=== PATIENT | female | born 1940 | race Caucasian/White ===

== ENCOUNTER → 2016-07-29 | Outpatient (CLI) | payer OTHER | LOC: MMPC 11:11 | DX: C50.311 Malignant neoplasm of lower-inner quadrant of right female breast (principal); G47.00 Insomnia, unspecified; F43.21 Adjustment disorder with depressed mood; F03.90 Unspecified dementia, unspecified severity, without behavioral disturbance, psychotic disturbance, mood disturbance, and anxiety; G25.0 Essential tremor; J45.909 Unspecified asthma, uncomplicated; E55.9 Vitamin D deficiency, unspecified; E53.8 Deficiency of other specified B group vitamins | CPT/HCPCS: 99213; G0463 ==

== ENCOUNTER → 2016-09-12 | Outpatient (CLI) | payer OTHER ==
--- NOTE | 2016-09-12 16:26 | DI ---
XR KNEE CMPT 4 OR MORE VWS,09/12/2016 10:49 AM: Clinical History: Right knee pain of unspecified chronicity. Previous Exam: None at this facility. Findings: 4 views of the right knee are obtained to include a weightbearing view of both knees in the AP projec tion. There is no fracture although there is an old left medial collateral ligament injury which was seen o n the prior comparison in 2014. There is mild loss of joint space within the anterior and medial comp artments with osteophyte formation. There is no knee joint effusion. Impression: Normal plain film of the right knee for age.
== END ==
LOC: ORTHO 12:08
PROVIDERS: ATTEND Orthopaedic Surgery
DX: M25.561 Pain in right knee (principal); M17.11 Unilateral primary osteoarthritis, right knee
CPT/HCPCS: 73564; 99214

== ENCOUNTER → 2016-10-02 | Outpatient (CLI) | payer OTHER | LOC: MMPC 09:00 | DX: C50.311 Malignant neoplasm of lower-inner quadrant of right female breast (principal); F03.90 Unspecified dementia, unspecified severity, without behavioral disturbance, psychotic disturbance, mood disturbance, and anxiety; G25.0 Essential tremor; K21.9 Gastro-esophageal reflux disease without esophagitis; G47.00 Insomnia, unspecified; E55.9 Vitamin D deficiency, unspecified; E53.8 Deficiency of other specified B group vitamins; J45.909 Unspecified asthma, uncomplicated | CPT/HCPCS: 99213; G0463 ==

== ENCOUNTER → 2016-12-05 | Outpatient (CLI) | payer OTHER | LOC: MMPC 11:11 | DX: C50.311 Malignant neoplasm of lower-inner quadrant of right female breast (principal); K21.9 Gastro-esophageal reflux disease without esophagitis; G47.00 Insomnia, unspecified; G25.0 Essential tremor; R41.81 Age-related cognitive decline; E53.8 Deficiency of other specified B group vitamins | CPT/HCPCS: 99213; G0463 ==

== ENCOUNTER → 2017-01-24 | Outpatient (CLI) | payer OTHER | LOC: MMPC 11:11 | DX: E53.8 Deficiency of other specified B group vitamins (principal) | CPT/HCPCS: G0463; J3420 ==

== ENCOUNTER → 2017-02-25 | Outpatient (CLI) | payer OTHER ==
[2017-02-25 13:01] LABS: BASOPHILS # (AUTO) 0.06 10*3/UL; BASOPHILS % (AUTO) 1.7 % (0-1); EOSINOPHILS % (AUTO) 2.9 % (0-8); MEAN CORPUSCULAR HEMOGLOBIN 31.7 PG (27-31); MEAN CORPUSCULAR HGB CONC 32.6 g/dL (33-37); MEAN CORPUSCULAR VOLUME 97.3 FL (81-99); MEAN PLATELET VOLUME 9.7 FL (7.4-12.2); MONOCYTES # (AUTO) 0.37 10*3/UL (0.3-0.8); MONOCYTES % (AUTO) 10.7 % (5-15); NEUTROPHILS # (AUTO) 2.03 10*3/UL; NEUTROPHILS % (AUTO) 58.5 % (50-80); RED BLOOD COUNT 4.42 10^6/uL (4.20-5.40)
[2017-02-25 13:02] LABS: PLATELET MORPHOLOGY COMMENT NORMAL MORPHOLOGY (NORM); RBC MORPHOLOGY COMMENT NORMAL MORPHOLOGY (NORM); WBC MORPHOLOGY COMMENT NORMAL MORPHOLOGY (NORM)
[2017-02-25 13:05] LABS: BILIRUBIN,URINE NEGATIVE (NEG); CLARITY,URINE CLEAR (CLEAR); COLOR,URINE YELLOW; GLUCOSE, URINE (UA) NEGATIVE (NEG); NITRATE,URINE NEGATIVE (NEG); OCCULT BLOOD,URINE Trace-lysed (NEG); PROTEIN,URINE NEGATIVE (NEG); UROBILINOGEN,URINE 0.2 mg/dL (0.2)
[2017-02-25 13:07] LABS: SQUAMOUS EPITHELIAL CELL,UR FEW; URINE SAMPLE TYPE VOIDED SPECIMEN
[2017-02-25 13:25] LABS: BUN/CREATININE RATIO 26.25 (6-20); CALCIUM 10.3 mg/dL (8.7-10.7); CHOL/HDL RATIO 2.19 RATIO (0-4.0); LDL CHOLESTEROL,CALCULATED 116.4 mg/dL; SERUM ALBUMIN 4.2 g/dL (3.5-4.8)
[2017-02-25 13:40] LABS: VITAMIN D 25-HYDROXY 24.4 NG/ML (30-100)
== END ==
LOC: MOB LAB 11:43
DX: G47.00 Insomnia, unspecified (principal); J45.909 Unspecified asthma, uncomplicated; K21.9 Gastro-esophageal reflux disease without esophagitis; C50.911 Malignant neoplasm of unspecified site of right female breast; M85.80 Other specified disorders of bone density and structure, unspecified site; E55.9 Vitamin D deficiency, unspecified; F41.9 Anxiety disorder, unspecified
CPT/HCPCS: 36415; 80053; 80061; 81001; 82306; 84443; 85025

== ENCOUNTER 2018-04-01 03:14 | Observation (INO) ==
[2018-04-01] MEDS ORDERED: Sodium Chloride 0.9% 1,000 ML PRIMARY IV ONE (03:35)
[2018-04-01 03:47] LABS: BASOPHILS # (AUTO) 0.03 10*3/UL; BASOPHILS % (AUTO) 0.4 % (0-1); EOSINOPHILS # (AUTO) 0.09 10*3/UL; EOSINOPHILS % (AUTO) 1.2 % (0-8); Hematocrit [HCT] 42.2 % (37.0-47.0); Hemoglobin [HGB] 14.4 g/dL (12.0-16.0); LYMPHOCYTES # (AUTO) 1.04 10*3/uL; MEAN CORPUSCULAR HEMOGLOBIN 32.8 PG (27-31); MEAN CORPUSCULAR HGB CONC 34.1 g/dL (33-37); MEAN CORPUSCULAR VOLUME 96.1 FL (81-99); MEAN PLATELET VOLUME 9.1 FL (7.4-12.2); MONOCYTES # (AUTO) 0.59 10*3/UL (0.3-0.8); MONOCYTES % (AUTO) 7.7 % (5-15); NEUTROPHILS # (AUTO) 5.94 10*3/UL; NEUTROPHILS % (AUTO) 76.9 % (50-80); PLATELET MORPHOLOGY COMMENT NORMAL MORPHOLOGY (NORM); RBC MORPHOLOGY COMMENT NORMAL MORPHOLOGY (NORM); RED BLOOD COUNT 4.39 10^6/uL (4.20-5.40); WBC MORPHOLOGY COMMENT NORMAL MORPHOLOGY (NORM)
[2018-04-01] MEDS ORDERED: Acetaminophen 1000mg Inj 1,000 MG/100 ML VIAL IV PRN (03:47)
[2018-04-01 03:55] LABS: BLOOD UREA NITROGEN 16 mg/dL (7-22); LIPASE 220 IU/L (23-300)
[2018-04-01 04:31] LABS: BILIRUBIN,URINE NEGATIVE (NEG); CLARITY,URINE CLEAR (CLEAR); COLOR,URINE YELLOW (Y); GLUCOSE, URINE (UA) NEGATIVE (NEG); OCCULT BLOOD,URINE NEGATIVE (NEG); PROTEIN,URINE NEGATIVE (NEG); URINE SAMPLE TYPE CATH SPECIMEN; UROBILINOGEN,URINE 0.2 EU/dL (0.2)
--- NOTE | 2018-04-01 04:48 | DI ---
INDICATION: Lower pelvic pain TECHNIQUE: Multiple, contiguous axial cuts of the abdomen and pelvis are obtained from the lung bases to the ischial tuberosities following the administration of 75 mL Isovue-300 IV contrast. Sagittal and coronal reformatted images are available. COMPARISON: None FINDINGS: There is subsegmental atelectasis at the right lung base. There is a small hiatal hernia. The liver, gallbladder, spleen, pancreas, and adrenal glands are unremarkable. The kidneys enhance symmetrically. There is no hydronephrosis or perinephric stranding. Aorta and IVC are normal. There is no adenopathy. The appendix is not visualized. There is no evidence of bowel obstruction. There is sigmoid diverticulosis with acute diverticulitis of the distal sigmoid colon (series 2, image 104), characterized by wall thickening and pericolic fat stranding and fluid. There is no evidence of free air or diverticular abscess. Urinary bladder is unremarkable. Uterus is surgically absent. There are no acute osseous findings. There is moderate degenerative disc disease in the lower lumbar spine. There are bilateral pars defects at L5 with grade 1 spondylolisthesis. IMPRESSION: 1. Acute sigmoid diverticulitis.
[2018-04-01] MEDS ORDERED: DOXEPIN HCL 3 MG PO PRN (05:51)
[2018-04-01] MEDS ORDERED: ACETAMINOPHEN 325 MG TABLET PO PRN (05:51)
[2018-04-01] MEDS ORDERED: CALCIUM CARBONATE 500 MG (TUMS) CHEWABLE TABLET PO PRN (05:51)
[2018-04-01] MEDS ORDERED: LIDOCAINE W/ SODIUM BICARB 0.5 ML SYR SUBD PRN (05:51)
[2018-04-01] MEDS ORDERED: DOCUSATE 100 MG CAPSULE PO PRN (05:51)
[2018-04-01] MEDS ORDERED: ONDANSETRON 4 MG/2 ML VIAL IVP PRN (05:51)
[2018-04-01] MEDS ORDERED: CHOLECALCIFEROL 4000 UNIT PO SCH (05:51)
[2018-04-01] MEDS ORDERED: IPRATROPIUM/ALBUTEROL SULFATE 3 ML NEB NEB PRN (05:51)
[2018-04-01] MEDS: D5-1/2NS + 20mEq KCL 1,000 ML PRIMARY IV SCH ×2 (06:38→16:08)
--- NOTE | 2018-04-01 08:08 | PDOC ---
Abdomen/Flank HPI - General Chief Complaint: Abdomen Pain Stated Complaint: abdominal pain Date Seen by Provider: 04/01/18 Time Seen by Provider: 03:25 Source: POSITIVE: Patient, Spouse Exam Limitations: POSITIVE: Clinical condition (Patient has Alzheimer's and is a somewhat poor historian. Lateral information collected from patient's ). NEGATIVE: No limitations, Intoxication, Language barrier, Physical impairment, Other Nurse's Notes Reviewed & Considered: Yes - History of Present Illness Initial Comments: The patient is a 77-year-old female who is brought to the emergency room by her . Patient has had some progressive abdominal pain for the last 2-3 days. She's had a hysterectomy. reports that the patient has a history of "chronic constipation" and last had a bowel movement yesterday. No known fevers. No vomiting, diarrhea, melena, hematochezia, hematemesis, dysuria or hematuria. Patient's abdominal pain is in the lower abdomen, left greater than right. Body Location Affected: REPORTS: Abdomen Timing: REPORTS: Gradual, Getting Worse Duration: >24 hours (2-3 days) Severity: Moderate Quality: REPORTS: "Pain" Abdominal Pain Onset Location: REPORTS: RLQ, LLQ Abdominal Pain Radiation: REPORTS: No radiation Context: DENIES: None, Activity, Bending, Coughing, Fall, Lifting, Near Fall, Rest, Sitting, Sleep, Standing, Turning, Emotional stress, Camping, Bad Food, Out of Country Travel, Other, Recent Surgery, Recent Trauma Modifying Factors: improves with: Palpation, Movement. worse with: Nothing, Analgesics, Antacids, Breathing, Coughing, Defecating, Vomiting, Eating, Exercise, Lying down, Urinating, Rest, Upright Position, Walking, Remaining Still, Other Associated Symptoms: REPORTS: Denies symptoms Similar Symptoms Previously: No Recent Care Received: REPORTS: Denies Any Prior Injuries Related to Current Complaint?: No - Patient Home Medications Home Medications: Home Medications Polyethylene Glycol 3350 [Miralax] 17 gm ORAL QD #527 gm 01/10/14 Propranolol HCl [Propranolol Hcl Er] 1 cap PO QD #90 cap 08/23/16 Doxepin HCl [Silenor] 1 tab PO QHS #30 tab 12/05/16 fluoxetine 20 mg capsule 20 mg PO QDAY #90 cap 06/24/17 albuterol sulfate HFA 90 mcg/actuation aerosol inhaler 2 inh INH QID PRN #6.7 g 08/12/17 doxepin 3 mg tablet 3 mg PO QHS PRN #30 tab 08/12/17 ipratropium bromide 0.03 % nasal spray 2 spray INASL BID #30 ml 08/12/17 ipratropium-albuterol 0.5 mg-3 mg(2.5 mg base)/3 mL nebulization soln 3 ml INH Q4-6H PRN #120 ml 09/26/17 meloxicam 15 mg tablet 15 mg PO DAILY #30 tab 10/14/17 calcium carbonate 600 mg calcium (1,500 mg) tablet 600 mg PO BID #180 tab cholecalciferol (vitamin D3) 2,000 unit capsule 4,000 unit PO ONCE #180 cap denosumab 60 mg/mL subcutaneous syringe 60 mg SUBCUT [id number] #1 ml 11/11/17 donepezil 10 mg tablet 10 mg PO QHS #90 tab 11/11/17 trazodone 50 mg tablet 100 mg PO QHS #180 tab 11/11/17 - Patient Allergies Allergies/Adverse Reactions: Allergies 3 Allergy/AdvReac Type Severity Reaction Status Date / Time No Known Allergies Allergy Verified 04/01/18 06:39 Past Medical History - heen HEENT History: Cataracts, Hard of Hearing Cardiovascular History: Denies History Respiratory History: Asthma, Sleep Apnea Additional Respiratory History: SEASONAL/EXERCISE INDUCED ASTHMA Gastrointestinal History: Other (please comment) Additional Gastrointestinal History: CHRONIC CONSTIPATION Genitourinary History: Denies History Endocrine History: Denies History Musculoskeletal History: Arthritis, Joint Pain Prosthesis or Implant: Yes (LEFT FOOT HARDWARE/RIGHT FOOT HWARE) Additional Musculoskeletal History: FOOT PAIN/ OSTEOPENIA/ RIGHT ANKLE FX Neurological History: Denies History Blood Disorders: Denies History Psychiatric History: Depression, Anxiety Disorders History of Sexually Transmitted Diseases: No Female Reproductive History: Hysterectomy Cancer History: Breast, Skin Cancer Treatment / Date(s) of Treatment: 2016 In Past Year Been Physically Harmed or Verbally Threatened: No History of MDRO: No History of Other Communicable Diseases: No Tobacco Use: Never Smoker Alcohol Use: Rarely Type of alcohol normally used: Hard Liquor In the Past 12 Months, Have Used or Abuse Any Substance: None Previous Surgical History: Yes Type / Date of Surgery: APPY/ BILAT OOPHORECTOMY/ BUNIONECTOMY RIGHT FOOT/ COLONOSCOPY/ EGD/ HYST/ ORIF RIGHT ANKLE/ VEIN STRIPPING/ CATARACT EXTRACTION/ TONSILLECTOMY/ LUMPECTOMY RIGHT BREAST Anesthesia Reactions: No Malignant Hyperthermia: No Significant Family History: Cancer Past Medical History Reviewed: Reviewed - No Changes ROS - Limitations ROS Limitations: No Limitations Constitution: REPORTS: Denies Symptoms Cardiovascular: REPORTS: Denies Cardiac Symptoms Respiratory: REPORTS: Denies Resp Symptoms Neurological: REPORTS: Denies Neuro Symptoms Gastrointestinal: REPORTS: Abdominal Pain Endocrine: REPORTS: Denies Symptoms Musculoskeletal: REPORTS: Denies MS Symptoms Genitourinary: REPORTS: Denies Symptoms Eyes: REPORTS: Denies Symptoms ENT: REPORTS: Denies Symptoms Skin: REPORTS: Denies Skin Symptoms Lympathic: REPORTS: Denies Lympathic Symptoms Immunologic: POSITIVE: Denies Symptoms Psychiatric: POSITIVE: Denies Psych Symptoms Abdominal/Flank Pain PE - General Appearance General Appearance: POSITIVE: Alert, Cooperative, No Acute Distress, No Evidence of Trauma - HEENT HEENT: POSITIVE: Head Inspection Nml, Eyes Inspection Nml, Ears Inspection Nml, Nose Inspection Nml, Oral/Dental Inspect. Nml, Pharynx Inspect. Nml, PERRL, EOMI - Neck Neck: POSITIVE: Normal Inspection, No Apparent Injury - Respiratory Respiratory: POSITIVE: No Respiratory Distress, Breath Sounds Normal, Chest Non- Tender - Cardiovascular Cardiovascular: POSITIVE: Regular Rate and Rhythm, Heart Sounds Normal, Equal Pulses, Strong Pulses Peripheral Pulses: Radial (R): 2+, Radial (L): 2+ - Chest Chest: POSITIVE: Non Tender - Abdomen Abdomen: Soft: (All Quadrants), Normal Bowel Sounds: (All Quadrants), No Splenomegaly: (RUQ), (LUQ), No Hepatomegaly: (All Quadrants), No Guarding: (All Quadrants), No Rebound: (All Quadrants), No Palpable Pulse: (All Quadrants), No Palpabale Mass: (All Quadrants), No Distention: (All Quadrants), No Rigidity: ( All Quadrants), Tenderness Noted: (RLQ), (LLQ) Additional Abdominal Details: Abdominal examination shows bowel sounds to be present. Patient has pain on direct palpation over the lower abdomen, left greater than right. No masses, organomegaly or rebound. - Back Back: POSITIVE: Normal Inspection. NEGATIVE: CVA Tenderness (R), CVA Tenderness (L) - Skin Skin: POSITIVE: Intact, Normal For Race, Warm, Dry, No Rash - Extremities Extremity: Non-Tender: (All Extremities), Normal ROM: (All Extremities), Normal Inspection: (All Extremities) - Neurological Neurological: POSITIVE: Affect Apporpriate, Oriented X3, supervisor dimension warehouse Normal As Tested, Motor Normal, Sensation Normal - Psychological Psychiatric: POSITIVE: Affect Appropriate, Mood Appropriate Images - Complete Complete: 1 - Area of abdominal pain Abdomen Progress - Results Reviewed by me Xrays/CTs/US Reviewed by me: Yes Discussed with Radiologist: Yes Radiology Findings: CT scan abdomen shows acute diverticulitis. Lab Results Reviewed by Me: Yes CBC and BMP: 04/01/18 03:40 04/01/18 03:40 Lab Results:: Laboratory Results 3 04/01/18 04/01/18 04/01/18 03:40 03:40 04:25 WBC 7.71 RBC 4.39 Hgb 14.4 Hct 42.2 MCV 96.1 MCH 32.8 H MCHC 34.1 RDW Std Deviation 43.4 RDW Coeff of Jonathan 12.6 Plt Count 176 MPV 9.1 Immature Gran % (Auto) 0.3 Neut % (Auto) 76.9 Lymph % (Auto) 13.5 [place] % (Auto) 7.7 Eos % (Auto) 1.2 Baso % (Auto) 0.4 Immature Gran # (Auto) 0.02 Neut # (Auto) 5.94 Lymph # (Auto) 1.04 [place] # (Auto) 0.59 Eos # (Auto) 0.09 Baso # (Auto) 0.03 WBC Morphology Comment Normal morphology Plt Morphology Comment Normal morphology RBC Morph Comment Normal morphology Sodium 139 Potassium 4.2 Chloride 105 Carbon Dioxide 29 Anion Gap 5 BUN 16 Creatinine 0.8 BUN/Creatinine Ratio 20.00 Glucose 105 Calculated Osmolality 288.0 Calcium 11.1 H Total Bilirubin 0.4 AST 28 ALT 27 Alkaline Phosphatase 108 Total Protein 7.2 Albumin 4.0 Globulin 3.1 Albumin/Globulin Ratio 1.20 L Amylase 124 H Lipase 220 Ur Collection Type Cath specimen Urine Color Yellow Urine Clarity Clear Urine pH 6.0 Ur Specific [place] 1.015 Urine Protein Negative Urine Glucose (UA) Negative Urine Ketones Negative Urine Occult Blood Negative Urine Nitrate Negative Urine Bilirubin Negative Urine Urobilinogen 0.2 Ur Leukocyte Esterase Negative Ur Culture Indicated? Culture not set - Patient's Progress Pain Medication Addressed: POSITIVE: Yes (Acetaminophen, 1 g IV given) School/Work Release Addressed: POSITIVE: Not Applicable Re-examine Time: 05:00 Re-Examine Comment: Results of laboratory and radiologic studies discussed with patient and family. Patient's condition is essentially and change. Patient admitted per hospitalist for further evaluation and treatment. Diagnosis is acute diverticulitis. Status: POSITIVE: Unchanged, Re-Examined - Consult Consult (If Yes, Name of Consulting MD & Time Called): Yes (Dr. Ellis, hospitalist, [id number]) Consulting MD will see pt:: POSITIVE: [facility] [place] Admit Counseled: POSITIVE: Patient, Family, RE: Lab Results, RE: Radiology Results, RE : DX, RE: Need for F/U Patient Care Time - Estimated PCT Patient Care Time (In Minutes): 55 Vital Signs - Recent Vital Signs Vital Signs: Vital Signs (Last 8 hours) Temp Pulse Resp BP Pulse Ox 04/01/18 03:14 97.5 F 61 20 185/120 96 - VS Reviewed Vital Signs Reviewed: Yes Discharge Clinical Impression: Abdominal pain, Diverticulitis Discharge Disposition: Admit to Inpatient Condition: Stable Date Decision to Admit to Inpatient: 04/01/18 Time Decision to Admit to Inpatient: 05:15
[2018-04-01] MEDS: cefTRIAXone Inj 2 GM in Sodium Chloride 0.9% 100 ML IV SCH (08:54)
[2018-04-01] MEDS: PROPRANOLOL ER 60 MG CAPSULE PO SCH (08:55)
[2018-04-01] MEDS: POLYETHYLENE GLYCOL 3350 17 GM POWDER PO SCH (08:55)
[2018-04-01] MEDS: Meloxicam Tab 7.5 MG TABLET PO SCH (08:55)
[2018-04-01] MEDS: FLUoxetine 20 MG CAPSULE PO SCH (08:55)
[2018-04-01] MEDS: CHOLECALCIFEROL 1000 IU TABLET PO SCH (08:56)
[2018-04-01] MEDS: metroNIDAZOLE 500mg (Premix) 500 MG/100 ML BAG IV SCH ×2 (09:52→16:08)
--- NOTE | 2018-04-01 12:48 | PDOC ---
HPI - History of Present Illness Date of Service: 04/01/18 Time of Service: 12:43 Chief Complaint: Abdominal pain History of Present Illness: This is a very pleasant 77-year-old female who came in accompanied by her early this morning with complaints of abdominal pain. She described to me is suprapubic pain. She states it's actually better after fluids and antibiotics. A CT scan in the emergency room was done and it showed acute diverticulitis in the sigmoid colon. The patient recalled 2 prior colonoscopies but does not recall any problems with those. Her history is limited somewhat in that she has dementia. Her was not available during the interview this morning. I did see her prior to noon. The patient denies any nausea, vomiting, diarrhea, blood in the stool, or other issues. She denied any fevers. She denied any chest pain or shortness of breath. There were no prior incidence of pain like this before per the patient's recollection. I gave her Rocephin and Flagyl and IV fluids. She's been able to tolerate clear liquids to this point. She remains afebrile. Past Medical History Medical History: 1. Dementia, no behavioral disturbance. 2. Essential tremor. 3. Osteopenia/osteoporosis. 4. History of breast cancer. 5. GERD Surgical History: 1. Colonoscopy. 2. From my review of the medical record, patient has had appendectomy, oophorectomy, bunionectomy, cataract surgery, EGD , breast cancer surgery. 3. Varicose vein stripping Pertinent Family History: mother of cancer. Past Social History: , has healthy children. Does not smoke but admits to an occasional cocktail. Tobacco Use: Never Smoker In the Past 12 Months, Have Used or Abuse Any of the Following Substance: None Alcohol Use: Occasionally Medication / Allergies Home Medications: Home Medications 3 Medication Instructions Recorded Confirmed Type Polyethylene Glycol 3350 [Miralax] 17 gm ORAL QD #527 gm 01/10/14 04/01/18 History Propranolol HCl [Propranolol Hcl 1 cap PO QD #90 cap 08/23/16 04/01/18 Rx Er] Doxepin HCl [Silenor] 1 tab PO QHS #30 tab 12/05/16 Clinic fluoxetine 20 mg capsule 20 mg PO QDAY #90 cap 06/24/17 04/01/18 Rx albuterol sulfate HFA 90 2 inh INH QID PRN #6.7 g 08/12/17 04/01/18 Rx mcg/actuation aerosol inhaler doxepin 3 mg tablet 3 mg PO QHS PRN #30 tab 08/12/17 04/01/18 Rx ipratropium bromide 0.03 % nasal 2 spray INASL BID #30 ml 08/12/17 04/01/18 Rx spray ipratropium-albuterol 0.5 mg-3 3 ml INH Q4-6H PRN #120 ml 09/26/17 04/01/18 Rx mg(2.5 mg base)/3 mL nebulization soln meloxicam 15 mg tablet 15 mg PO DAILY #30 tab 10/14/17 04/01/18 Rx calcium carbonate 600 mg calcium 600 mg PO BID #180 tab 11/11/17 04/01/18 Rx (1,500 mg) tablet cholecalciferol (vitamin D3) 2,000 4,000 unit PO ONCE #180 cap 11/11/17 Rx unit capsule denosumab 60 mg/mL subcutaneous 60 mg SUBCUT [id number] #1 ml 11/11/17 04/01/18 Rx syringe donepezil 10 mg tablet 10 mg PO QHS #90 tab 11/11/17 04/01/18 Rx trazodone 50 mg tablet 100 mg PO QHS #180 tab 11/11/17 04/01/18 Rx Allergies/Adverse Reactions: Allergies 3 Allergy/AdvReac Type Severity Reaction Status Date / Time No Known Allergies Allergy Verified 04/01/18 06:39 Review of Systems - Review of Systems ROS Unobtainable: Due to Mental Status (Review systems was limited by dementia, but I tried to do the best I could and the patient denied any chest pain, shortness breath, nausea or vomiting, constipation, diarrhea, muscle pains, joint pains, thyroid problems, diabetes, her headache issues. Again very limited due to dementia) Exam - Vitals Vital Signs: Vital Signs Temperature 98.1 F Temperature Source Oral Pulse Rate [Apical] 64 Pulse Rate [Pulse Oximeter] 56 Respiratory Rate 20 Blood Pressure [Left Arm] 147/78 Pulse Ox 96 Oxygen Delivery Method Room Air Height 5 ft 2 in Weight 127 lb - General General Appearance: No Acute Distress, Cooperative - Head Head Exam: Normal Inspection, Normocephalic, Atraumatic - Eye Eye Exam: POSITIVE: No Scleral Icterus - ENT ENT Exam: POSITIVE: Mucous Membranes Moist - Neck Neck Exam: Normal Inspection, No Lymphadenopathy, No Thyromegaly, JVP is not Raised - Respiratory Respiratory Exam: POSITIVE: Clear to Auscultation - Bilaterally, Breathing Non Labored - Cardiovascular Cardiovascular Exam: POSITIVE: RRR, No Murmur, No Clicks, No Gallops, No Rubs, No JVD - GI/Abdominal GI/Abdominal Exam: POSITIVE: Normal Bowel Sounds, Non Tender, Non Distended, Soft - Rectal Rectal Exam: POSITIVE: Deferred - External Exam: POSITIVE: Deferred Exam: POSITIVE: Deferred - Extremities Extremities Exam: POSITIVE: No Clubbing Present, No Edema Present, No Cyanosis Present - Neurological Neurological Exam: POSITIVE: Alert, No Facial Droop, Speech Intact / Clear, Moves All Extremities Equally Additional Neurological Exam Details: Oriented to person and place and knows she is here for abdominal pain but not necessarily associated time - Psychiatric Psychiatric Exam: POSITIVE: Normal Affect, Normal Mood Results - Labs CBC and BMP: 04/01/18 03:40 04/01/18 03:40 Additional Lab Results: Laboratory Results 04/01/18 04/01/18 04/01/18 Range/Units 03:40 03:40 04:25 WBC 7.71 (4.8-10.8) 10^3/uL RBC 4.39 (4.20-5.40) 10^6/uL Hgb 14.4 (12.0-16.0) g/dL Hct 42.2 (37.0-47.0) % MCV 96.1 (81-99) FL MCH 32.8 H (27-31) PG MCHC 34.1 (33-37) g/dL RDW Std Deviation 43.4 (39-50) fL RDW Coeff of [place] 12.6 (11.5-14.5) % Plt Count 176 (140-350) 10*3/uL MPV 9.1 (7.4-12.2) FL Immature Gran % (Auto) 0.3 (0-5) % Neut % (Auto) 76.9 (50-80) % Lymph % (Auto) 13.5 (10-50) % [place] % (Auto) 7.7 (5-15) % Eos % (Auto) 1.2 (0-8) % Baso % (Auto) 0.4 (0-1) % Immature Gran # (Auto) 0.02 10*3/UL Neut # (Auto) 5.94 10*3/UL Lymph # (Auto) 1.04 10*3/uL [place] # (Auto) 0.59 (0.3-0.8) 10*3/UL Eos # (Auto) 0.09 10*3/UL Baso # (Auto) 0.03 10*3/UL WBC Morphology Comment Normal morphology (NORM) Plt Morphology Comment Normal morphology (NORM) RBC Morph Comment Normal morphology (NORM) Sodium 139 (135-145) meq/L Potassium 4.2 (3.8-5.2) meq/L Chloride 105 (98-112) meq/L Carbon Dioxide 29 (23-33) meq/L Anion Gap 5 (5-20) BUN 16 (7-22) mg/dL Creatinine 0.8 (0.50-1.20) mg/dL BUN/Creatinine Ratio 20.00 (6-20) Glucose 105 (78-110) mg/dL Calculated Osmolality 288.0 (267-292) mOsm/kg Calcium 11.1 H (8.7-10.7) mg/dL Total Bilirubin 0.4 (0.3-1.2) mg/dL AST 28 (8-39) IU/L ALT 27 (9-52) IU/L Alkaline Phosphatase 108 (38-126) IU/L Total Protein 7.2 (6.1-8.0) g/dL Albumin 4.0 (3.5-4.8) g/dL Globulin 3.1 (2.50-4.10) g/dL Albumin/Globulin Ratio 1.20 L (1.3-2.0) mg/g Amylase 124 H (30-110) U/L Lipase 220 (23-300) IU/L Ur Collection Type Cath specimen Urine Color Yellow (Y) Urine Clarity Clear (CLEAR) Urine pH 6.0 (5.0-8.5) Ur Specific [place] 1.015 (1.005-1.030) Urine Protein Negative (NEG) mg/dl Urine Glucose (UA) Negative (NEG) mg/dL Urine Ketones Negative (NEG) Urine Occult Blood Negative (NEG) Urine Nitrate Negative (NEG) Urine Bilirubin Negative (NEG) Urine Urobilinogen 0.2 (0.2) EU/dL Ur Leukocyte Esterase Negative (NEG) Ur Culture Indicated? Culture not set Assessment and Plan - Patient Problems (1) Diverticulitis Current Visit: Yes Status: Acute Code(s): K57.92 - Diverticulitis of intestine, part unspecified, without perforation or abscess without bleeding (2) Dementia Current Visit: Yes Status: Acute Code(s): F03.90 - Unspecified dementia without behavioral disturbance Qualifiers: Dementia type: Alzheimer's disease Alzheimer's disease onset: late-onset Dementia behavioral disturbance: without behavioral disturbance Qualified Code (s): G30.1 - Alzheimer's disease with late onset; F02.80 - Dementia in other diseases classified elsewhere without behavioral disturbance (3) GERD (gastroesophageal reflux disease) Current Visit: Yes Status: Acute Code(s): K21.9 - Gastro-esophageal reflux disease without esophagitis Qualifiers: Esophagitis presence: esophagitis presence not specified Qualified Code(s) : K21.9 - Gastro-esophageal reflux disease without esophagitis (4) History of breast cancer Current Visit: Yes Status: Acute Code(s): Z85.3 - Personal history of malignant neoplasm of breast - Assessment / Plan Additional Assessment/Plan Details: Patient is admitted for observation. I'll keep her on Rocephin and Flagyl here. I suspect that if we can advance her diet through the day, we could probably discharge her home tomorrow on a course of by mouth antibiotics with post hospital stay follow-up with surgery to consider whether or not a colonoscopy would be indicated. It would be nice to avoid one given the patient 's dementia, however, given sigmoid diverticulitis, this could repeat itself in the future. IV fluids today, stop tomorrow. With quick resolution in pain today, I will avoid narcotics. Try to continue home medications for dementia. MiraLAX should be given daily for this patient. I like her to avoid constipation is much as possible to not aggravate her diverticular disease
[2018-04-01] MEDS ORDERED: DONEPEZIL 5 MG TABLET PO SCH (21:00)
[2018-04-01] MEDS ORDERED: traZODone Tab 50 MG TAB PO SCH (21:00)
[2018-04-02] MEDS: metroNIDAZOLE 500mg (Premix) 500 MG/100 ML BAG IV SCH ×2 (01:10→09:58)
[2018-04-02] MEDS: D5-1/2NS + 20mEq KCL 1,000 ML PRIMARY IV SCH (03:11)
[2018-04-02 05:25] LABS: BASOPHILS # (AUTO) 0.01 10*3/UL; BASOPHILS % (AUTO) 0.2 % (0-1); EOSINOPHILS # (AUTO) 0.06 10*3/UL; EOSINOPHILS % (AUTO) 1.2 % (0-8); Hematocrit [HCT] 39.1 % (37.0-47.0); Hemoglobin [HGB] 12.8 g/dL (12.0-16.0); LYMPHOCYTES # (AUTO) 0.83 10*3/uL; MEAN CORPUSCULAR HGB CONC 32.7 g/dL (33-37); MEAN CORPUSCULAR VOLUME 97.8 FL (81-99); MEAN PLATELET VOLUME 9.6 FL (7.4-12.2); MONOCYTES # (AUTO) 0.48 10*3/UL (0.3-0.8); MONOCYTES % (AUTO) 9.6 % (5-15); NEUTROPHILS % (AUTO) 72.2 % (50-80)
[2018-04-02 05:30] LABS: PLATELET MORPHOLOGY COMMENT NORMAL MORPHOLOGY (NORM); RBC MORPHOLOGY COMMENT NORMAL MORPHOLOGY (NORM); WBC MORPHOLOGY COMMENT NORMAL MORPHOLOGY (NORM)
[2018-04-02 05:34] LABS: BLOOD UREA NITROGEN 8 mg/dL (7-22); SERUM ALBUMIN 3.1 g/dL (3.5-4.8)
[2018-04-02] MEDS: POLYETHYLENE GLYCOL 3350 17 GM POWDER PO SCH (08:19)
[2018-04-02] MEDS: Meloxicam Tab 7.5 MG TABLET PO SCH (08:19)
[2018-04-02] MEDS: cefTRIAXone Inj 2 GM in Sodium Chloride 0.9% 100 ML IV SCH (08:19)
[2018-04-02] MEDS: CHOLECALCIFEROL 1000 IU TABLET PO SCH (08:20)
[2018-04-02] MEDS: PROPRANOLOL ER 60 MG CAPSULE PO SCH (08:20)
[2018-04-02] MEDS: FLUoxetine 20 MG CAPSULE PO SCH (08:20)
[2018-04-02 09:05] VITALS: RESP 16
--- NOTE | 2018-04-02 12:02 | DCSUMMARY ---
Hospitalization Summary Admit Date: 04/01/2018 Discharge Date: 04/02/18 Primary Diagnosis:: sigmoid diverticulitis Hospital Course: This very pleasant 77-year-old female who suffers from dementia, and she came in with a bout of sigmoid diverticulitis. She had some abdominal pain that was suprapubic, and the inflammation was just above the bladder on the CT scan. The patient recovered very quickly with IV antibiotics, and I treated her with Rocephin and Flagyl through the hospital stay. Her white count was normal. She was afebrile, but it was felt that because of her dementia, it would be best to start therapy in the hospital. Her abdominal pain resolved by the morning. Her last colonoscopy was in 2012. She has no allergies. We'll will be sending her home on a total of 8 more days of antibiotic coverage for total of 10 days. She'll go home on Augmentin. We will have her see her primary provider for follow-up on her diverticulitis as well as surgery in about 4-6 weeks to arrange a colonoscopy to determine the extent of the diverticular disease. In addition I had the patient go on MiraLAX twice weekly to prevent constipation. Spoke at length with the patient and her regarding this discharge plans. The patient's seems to understand these plans. The patient herself is demented and her short-term memory is very poor so I'm hoping that her will be able to help her carry out this plan. Today, no complaints of chest pain, shortness breath, nausea or vomiting. The patient is ready to go home. Assessment and Plan: 1. As per discharge assessments noted 2. Disposition: Patient is discharged home. 3. Condition on discharge, stable and improved. 4. Diet: regular diet 5. Activities: resume normal activities 6. Follow-Up: 1. Antonia Stack in a week or so 2. Dr. Rizzo, in 4-6 weeks to arrange screening colonoscopy for diverticular disease. 7. Medications at the Time of Discharge: Home Medications 3 Medication Instructions Recorded Confirmed Type Polyethylene Glycol 3350 [Miralax] 17 gm ORAL QD #527 gm 01/10/14 04/01/18 History Propranolol HCl [Propranolol HCl 1 cap PO QD #90 cap 08/23/16 04/01/18 Rx ER] Doxepin HCl [Silenor] 1 tab PO QHS #30 tab 12/05/16 Clinic fluoxetine 20 mg capsule 20 mg PO QDAY #90 cap 06/24/17 04/01/18 Rx albuterol sulfate HFA 90 2 inh INH QID PRN #6.7 g 08/12/17 04/01/18 Rx mcg/actuation aerosol inhaler doxepin 3 mg tablet 3 mg PO QHS PRN #30 tab 08/12/17 04/01/18 Rx ipratropium bromide 0.03 % nasal 2 spray INASL BID #30 ml 08/12/17 04/01/18 Rx spray ipratropium-albuterol 0.5 mg-3 3 ml INH Q4-6H PRN #120 ml 09/26/17 04/01/18 Rx mg(2.5 mg base)/3 mL nebulization soln meloxicam 15 mg tablet 15 mg PO DAILY #30 tab 10/14/17 04/01/18 Rx calcium carbonate 600 mg calcium 600 mg PO BID #180 tab 11/11/17 04/01/18 Rx (1,500 mg) tablet cholecalciferol (vitamin D3) 2,000 4,000 unit PO ONCE #180 cap 11/11/17 Rx unit capsule denosumab 60 mg/mL subcutaneous 60 mg SUBCUT [id number] #1 ml 11/11/17 04/01/18 Rx syringe donepezil 10 mg tablet 10 mg PO QHS #90 tab 11/11/17 04/01/18 Rx trazodone 50 mg tablet 100 mg PO QHS #180 tab 11/11/17 04/01/18 Rx Amox Tr/Potassium Clavulanate 1 ea PO BID #10 tab 04/02/18 Rx [Augmentin 875-125 Tablet] Polyethylene Glycol 3350 [Miralax] 17 gm PO 2XW #120 powd.pack 04/02/18 Rx 8. Time, care, counseling and coordination of care for this discharge is greater than 30 minutes. Exam - Vitals Vital Signs: Vital Signs Temperature 97.2 F Temperature Source Temporal Artery Scan Pulse Rate [Apical] 72 Pulse Rate [Pulse Oximeter] 60 Respiratory Rate 16 Blood Pressure [Left Arm] 124/66 Pulse Ox 99 Oxygen Delivery Method Room Air Height 5 ft 2 in Weight 130 lb 12.8 oz - General General Appearance: No Acute Distress, Cooperative - Eye Eye Exam: POSITIVE: No Scleral Icterus - ENT ENT Exam: POSITIVE: Mucous Membranes Moist - Respiratory Respiratory Exam: POSITIVE: Clear to Auscultation - Bilaterally, Breathing Non Labored - Cardiovascular Cardiovascular Exam: POSITIVE: RRR, No Murmur, No Clicks, No Gallops, No Rubs, No JVD - GI/Abdominal GI/Abdominal Exam: POSITIVE: Normal Bowel Sounds, Non Tender, Non Distended, Soft - Extremities Extremities Exam: POSITIVE: No Clubbing Present, No Edema Present, No Cyanosis Present - Neurological Neurological Exam: POSITIVE: Alert, No Facial Droop, Speech Intact / Clear, Moves All Extremities Equally, Altered (Has dementia. Alert and oriented to person and knows that she is in the hospital. I think she vaguely understands that she has diverticular disease.) Data Peritnent Studies: Laboratory Results 04/02/18 04/02/18 Range/Units 04:11 04:11 WBC 4.99 (4.8-10.8) 10^3/uL RBC 4.00 L (4.20-5.40) 10^6/uL Hgb 12.8 (12.0-16.0) g/dL Hct 39.1 (37.0-47.0) % MCV 97.8 (81-99) FL MCH 32.0 H (27-31) PG MCHC 32.7 L (33-37) g/dL RDW Std Deviation 44.3 (39-50) fL RDW Coeff of Jonathan 12.5 (11.5-14.5) % Plt Count 143 (140-350) 10*3/uL MPV 9.6 (7.4-12.2) FL Immature Gran % (Auto) 0.2 (0-5) % Neut % (Auto) 72.2 (50-80) % Lymph % (Auto) 16.6 (10-50) % [place] % (Auto) 9.6 (5-15) % Eos % (Auto) 1.2 (0-8) % Baso % (Auto) 0.2 (0-1) % Immature Gran # (Auto) 0.01 10*3/UL Neut # (Auto) 3.60 10*3/UL Lymph # (Auto) 0.83 10*3/uL [place] # (Auto) 0.48 (0.3-0.8) 10*3/UL Eos # (Auto) 0.06 10*3/UL Baso # (Auto) 0.01 10*3/UL WBC Morphology Comment Normal morphology (NORM) Plt Morphology Comment Normal morphology (NORM) RBC Morph Comment Normal morphology (NORM) Sodium 138 (135-145) meq/L Potassium 4.1 (3.8-5.2) meq/L Chloride 111 (98-112) meq/L Carbon Dioxide 26 (23-33) meq/L Anion Gap 1 L (5-20) BUN 8 (7-22) mg/dL Creatinine 0.8 (0.50-1.20) mg/dL BUN/Creatinine Ratio 10.00 (6-20) Glucose 135 H (78-110) mg/dL Calculated Osmolality 285.0 (267-292) mOsm/kg Calcium 9.2 (8.7-10.7) mg/dL Total Bilirubin 0.4 (0.3-1.2) mg/dL AST 15 (8-39) IU/L ALT 32 (9-52) IU/L Alkaline Phosphatase 70 (38-126) IU/L Total Protein 5.8 L (6.1-8.0) g/dL Albumin 3.1 L (3.5-4.8) g/dL Globulin 2.7 (2.50-4.10) g/dL Albumin/Globulin Ratio 1.10 L (1.3-2.0) mg/g Procedures: [address] [facility] [place] [address] PH: DD: [phone] FAX: [phone] ~DIAGNOSTIC IMAGING REPORT~ Patient: Nicole Cruz : 1940 Sex: F Age: 77 Exam Name: CT Abdomen/Pelvis W Contrast Exam Date: 04/01/18 Report # : [id number] CPT Code: 31192 EMR/MR #: [id number] Ordering: DAVID BRADLEY Admiting: Primary: Antonia Stack APRN. Attending: Signed INDICATION: Lower pelvic pain TECHNIQUE: Multiple, contiguous axial cuts of the abdomen and pelvis are obtained from the lung bases to the ischial tuberosities following the administration of 75 mL Isovue-300 IV contrast. Sagittal and coronal reformatted images are available. COMPARISON: None FINDINGS: There is subsegmental atelectasis at the right lung base. There is a small hiatal hernia. The liver, gallbladder, spleen, pancreas, and adrenal glands are unremarkable. The kidneys enhance symmetrically. There is no hydronephrosis or perinephric stranding. Aorta and IVC are normal. There is no adenopathy. The appendix is not visualized. There is no evidence of bowel obstruction. There is sigmoid diverticulosis with acute diverticulitis of the distal sigmoid colon (series 2, image 104), characterized by wall thickening and pericolic fat stranding and fluid. There is no evidence of free air or diverticular abscess. Urinary bladder is unremarkable. Uterus is surgically absent. There are no acute osseous findings. There is moderate degenerative disc disease in the lower lumbar spine. There are bilateral pars defects at L5 with grade 1 spondylolisthesis. IMPRESSION: 1. Acute sigmoid diverticulitis. Dictated By: Isela Canales MD Signed By: 04/01/18 0448 Isela Canales MD Patient Problems - Patient Problem List (1) Diverticulitis Current Visit: Yes Status: Acute Code(s): K57.92 - Diverticulitis of intestine, part unspecified, without perforation or abscess without bleeding Category: Medical (2) Dementia Current Visit: Yes Status: Acute Code(s): F03.90 - Unspecified dementia without behavioral disturbance Qualifiers: Dementia type: Alzheimer's disease Alzheimer's disease onset: late-onset Dementia behavioral disturbance: without behavioral disturbance Qualified Code (s): G30.1 - Alzheimer's disease with late onset; F02.80 - Dementia in other diseases classified elsewhere without behavioral disturbance Category: Medical (3) GERD (gastroesophageal reflux disease) Current Visit: Yes Status: Acute Code(s): K21.9 - Gastro-esophageal reflux disease without esophagitis Qualifiers: Esophagitis presence: esophagitis presence not specified Qualified Code(s) : K21.9 - Gastro-esophageal reflux disease without esophagitis Category: Medical (4) History of breast cancer Current Visit: Yes Status: Acute Code(s): Z85.3 - Personal history of malignant neoplasm of breast Category: Medical
[2018-04-02 12:04] VITALS: BP 118/74; TEMP 98; O2SAT 96
== END 2018-04-02 13:07 | disposition home or self-care (01) ==
LOC: MED/SURG 03:14 → ER 03:14 → MED/SURG 05:47
PROVIDERS: ADMIT Family Medicine; ATTEND Family Medicine